=== PATIENT | female | born 1930 | race Caucasian/White ===

== ENCOUNTER 2016-03-27 11:46 | Emergency (ER) | payer OTHER ==
[~2016-03-27] VITALS: Ht 170.2 cm; Wt 74.8 kg
[~2016-03-27 11:46] MED LIST: ALBU0.086 INH; ALBU1AER INH; GUAI100S6 PO; LEVA750T PO; MEDR4PAK3 PO; METH2.5 PO; MEVA40TA6 PO; NEBUMIS6 INH; ZITH250T PO
[2016-03-27 11:56] VITALS: BP 129/69; PULSE 76; RESP 16; TEMP 97.7; O2SAT 98
[2016-03-27] MEDS ORDERED: LOVA40TA PO (12:19)
[2016-03-27] MEDS ORDERED: METH2.5T PO (12:19)
[2016-03-27] MEDS ORDERED: FOLI1TAB4 PO ×2 (12:19)
[2016-03-27] MEDS ORDERED: VITA10003 PO (12:19)
--- NOTE | 2016-03-27 12:37 | PD ---
HPI Chief Complaint: Pain: Acute or Chronic Time Seen by Provider: 12:07 Travel History International Travel<30 days: No Contact w/Intl Traveler<30days: No Traveled to known affect area: No History of Present Illness HPI 75 year-old woman who presents to the emergency department complaining of left portion of the pain is been ongoing for the past 2 weeks. Described as being fairly constant, but worse at times, some as well walking, sometimes all resting. She states the pain gets severe at times. She thinks she may have had a little bit of swelling about the ankle. She describes the pain is more about the lateral ankle rating up into the anterior lateral cho. No trauma. She has rheumatoid arthritis but states that she hasn't had similar symptoms in the past. She is on methotrexate. No history of DVT or PE. No other complaints. History Past Medical History Narrative Medical Hyperlipidemia Rheumatoid arthritis, on methotrexate Influenza Vaccination: Yes Menopausal: Yes Social History Alcohol Use: No Tobacco Use: No Allergies-Medications (Allergen,Severity, Reaction): Coded Allergies: No Known Allergies (Verified , 03/27/16) Reported Meds & Prescriptions Reported Meds & Active Scripts Active Reported Vitamin D-3 (Cholecalciferol) 1,000 Unit Tab 1,000 Units PO DAILY Lovastatin 40 Mg Tab 80 Mg PO DAILY Folate (Folic Acid) 1 Mg Tab 1 Mg PO EVERY DAY BUT FRI Folate (Folic Acid) 1 Mg Tab 1 Mg PO DAILY Methotrexate 2.5 Mg Tab 6 Tab PO Q7D Review of Systems Except as stated in HPI: all other systems reviewed are Neg Physical Exam Narrative GENERAL: Well-appearing 85 year-old woman, appears uncomfortable, nontoxic. SKIN: Warm and dry. HEAD: Atraumatic. Normocephalic. CARDIOVASCULAR: Regular rate and rhythm. No murmur appreciated. RESPIRATORY: No accessory muscle use. Clear to auscultation. Breath sounds equal bilaterally. GASTROINTESTINAL: Abdomen soft, non-tender, nondistended. Hepatic and splenic margins not palpable. MUSCULOSKELETAL: No obvious deformities. It a little bit of swelling in the left leg. It is difficult to see. The legs are little bit obese. Minimal calf tenderness. She is a lot of tenderness over the anterior lateral left leg. Compartments seem soft. There is no increased pain with passive range of motion of the leg. Strength seems full and equal. No numbness tingling. NEUROLOGICAL: Awake and alert. No obvious cranial nerve deficits. Motor grossly within normal limits. Normal speech. Data Data Last Documented VS Vital Signs Date Time Temp Pulse Resp B/P Pulse Ox O2 Delivery O2 Flow Rate FiO2 03/27/16 12:55 63 16 136/65 96 Room Air 03/27/16 11:56 97.7 Orders Complete Blood Count With Diff (03/27/16 12:15) Comprehensive Metabolic Panel (03/27/16 12:15) Act Partial Throm Time (Ptt) (03/27/16 12:15) Prothrombin Time / Inr (Pt) (03/27/16 12:15) Tibia/Fibula (Ap/Lat) (03/27/16 ) Ankle, Complete (Put6gfy) (03/27/16 ) Us Leg Venous Doppler (03/27/16 ) Morphine Inj (Morphine Inj) (03/27/16 12:45) Creatine Kinase (Cpk) (03/27/16 12:37) Ibuprofen (Motrin) (03/27/16 13:15) Labs Laboratory Tests Test 03/27/16 12:40 White Blood Count 5.6 TH/MM3 Red Blood Count 4.51 MIL/MM3 Hemoglobin 12.9 GM/DL Hematocrit 38.3 % Mean Corpuscular Volume 84.9 FL Mean Corpuscular Hemoglobin 28.5 PG Mean Corpuscular Hemoglobin 33.6 % Concent Red Cell Distribution Width 12.8 % Platelet Count 209 TH/MM3 Mean Platelet Volume 8.4 FL Neutrophils (%) (Auto) 60.8 % Lymphocytes (%) (Auto) 31.2 % Monocytes (%) (Auto) 6.3 % Eosinophils (%) (Auto) 0.5 % Basophils (%) (Auto) 1.2 % Neutrophils # (Auto) 3.4 TH/MM3 Lymphocytes # (Auto) 1.7 TH/MM3 Monocytes # (Auto) 0.4 TH/MM3 Eosinophils # (Auto) 0.0 TH/MM3 Basophils # (Auto) 0.1 TH/MM3 CBC Comment DIFF FINAL Differential Comment Prothrombin Time 10.7 SEC Prothromb Time International 1.0 RATIO Ratio Activated Partial 25.4 SEC Thromboplast Time Sodium Level 141 MEQ/L Potassium Level 3.8 MEQ/L Chloride Level 107 MEQ/L Carbon Dioxide Level 24.1 MEQ/L Anion Gap 10 MEQ/L Blood Urea Nitrogen 11 MG/DL Creatinine 0.74 MG/DL Estimat Glomerular Filtration 75 ML/MIN Rate Random Glucose 97 MG/DL Calcium Level 9.2 MG/DL Total Bilirubin 0.5 MG/DL Aspartate Amino Transf 11 U/L (AST/SGOT) Alanine Aminotransferase 20 U/L (ALT/SGPT) Alkaline Phosphatase 70 U/L Total Creatine Kinase 84 U/L Total Protein 7.1 GM/DL Albumin 3.5 GM/DL MDM Medical Decision Making Medical Screen Exam Complete: Yes Emergency Medical Condition: Yes Interpretation(s) LABS: CBC is unremarkable. CMP is unremarkable. Total CK is normal Coags are unremarkable Tib-fib x-ray, ankle x-ray: Negative My review of left leg ultrasound: Negative Differential Diagnosis DVT, pathologic fracture, ruptured Denise cyst, arterial insufficiency, compartment syndrome, other Narrative Course Medical decision making INITIAL: 85-year-old woman who presents emergency department with pain in her leg below the knee to about the ankle. Some swelling. Suspect DVT. No trauma. Pain is significant. We'll check labs, ultrasound, x-ray, reassess. FINAL: The not sure why the patient's having pain in her cho. She describes moderately severe pain to me but was declining any pain medicine rating it 1-2 out of 10. I don't think she has something dangerous like compartment syndrome working. Workup here was negative. This point we will recommend NSAIDs, and follow-up with her primary physician if symptoms aren't improving. She agrees to return immediately for any numbness feeling or weakness. Diagnosis Primary Impression: Leg pain, left Additional Instructions: Take Aleve as needed for pain. Follow-up with her primary doctor if not completely well in the next 5-7 days. Return to the emergency department for any numbness tingling weakness, or any worsening pain. Med/Other Pt SpecificInfo: No Change to Meds Disposition: 01 DISCHARGE HOME Condition: Stable Jose Nathan MD Mar 27, 2016 12:37
[2016-03-27] MEDS ORDERED: MORPHINE SULFATE 4 MG/ML INJ IV PUSH ONE (12:45)
--- NOTE | 2016-03-27 12:47 | RADHPO ---
EXAM DATE/TIME: 03/27/2016 12:26 [facility] COMPARISON: No previous studies available for comparison. INDICATIONS : Left ankle pain with no known injury MEDICAL HISTORY : None. SURGICAL HISTORY : None. ENCOUNTER: Initial ACUITY: 3 weeks PAIN SCORE: 2/10 LOCATION: Left entire ankle and foot FINDINGS: There is no evidence of fracture, dislocation or bony destruction. No significant articular abnormali ties are identified. A tiny plantar heel spur is evident. Hindfoot is otherwise focally unremarkable. CONCLUSION: No acute bony findings. Luis Oneal MD on March 27, 2016 at 12:44 Board Certified Radiologist. This report was verified electronically.
--- NOTE | 2016-03-27 12:47 | RADHPO ---
EXAM DATE/TIME: 03/27/2016 12:28 [facility] COMPARISON: No previous studies available for comparison. INDICATIONS : Left lower leg pain with no known injury MEDICAL HISTORY : None. SURGICAL HISTORY : None. ENCOUNTER: Initial ACUITY: 3 weeks PAIN SCORE: 2/10 LOCATION: Left entire lower leg FINDINGS: Two view examination of the left tibia demonstrates no evidence of fracture or dislocation. Bony min eralization is normal. The soft tissue structures are intact. CONCLUSION: Unremarkable examination of the left tibia. Luis Oneal MD on March 27, 2016 at 12:45 Board Certified Radiologist. This report was verified electronically.
[2016-03-27 12:55] VITALS: BP 136/65; PULSE 63; RESP 16; O2SAT 96
[2016-03-27 13:03] LABS: CHLORIDE 107 MEQ/L (98-107); POTASSIUM 3.8 MEQ/L (3.5-5.1); SODIUM (NA) 141 MEQ/L (136-145)
[2016-03-27 13:04] LABS: AUTOMATED NEUTROPHIL # 3.4 TH/MM3 (1.8-7.7); BASOPHIL # 0.1 TH/MM3 (0-0.2); BASOPHIL % 1.2 % (0.0-2.0); EOSINOPHIL % 0.5 % (0.0-4.0); HEMATOCRIT 38.3 % (35.0-46.0); HEMO FLAGS DIFF FINAL; LYMPH % 31.2 % (9.0-44.0); LYMPHOCYTE # 1.7 TH/MM3 (1.0-4.8); MEAN CELL VOLUME 84.9 FL (80.0-100.0); MEAN CORPUSCULAR HEMOGLOBIN 28.5 PG (27.0-34.0); MEAN CORPUSCULAR HGB CONC 33.6 % (32.0-36.0); MONO % 6.3 % (0.0-8.0); NEUT % 60.8 % (16.0-70.0); PLATELET COUNT 209 TH/MM3 (150-450); RED BLOOD COUNT 4.51 MIL/MM3 (4.00-5.30); RED CELL DISTRIBUTION WIDTH 12.8 % (11.6-17.2); WHITE BLOOD COUNT 5.6 TH/MM3 (4.0-11.0)
[2016-03-27 13:07] LABS: ANION GAP 10 MEQ/L (5-15); APTT (PATIENT) 25.4 SEC (24.3-30.1); BICARBONATE 24.1 MEQ/L (21.0-32.0); BLOOD UREA NITROGEN 11 MG/DL (7-18); PROTHROMBIN TIME - PATIENT 10.7 SEC (9.8-11.6)
[2016-03-27 13:10] LABS: ALT (GPT) 20 U/L (10-53); AST (GOT) 11 U/L (15-37); GLOMERULAR FILTRATION RATE 75 ML/MIN (>89)
[2016-03-27 13:12] LABS: TOTAL BILIRUBIN ADULT 0.5 MG/DL (0.2-1.0)
[2016-03-27 13:14] LABS: ALKALINE PHOSPHATASE 70 U/L (45-117)
[2016-03-27] MEDS ORDERED: IBUPROFEN 400 MG TAB PO ONE (13:15)
--- NOTE | 2016-03-27 13:49 | RADHPO ---
EXAM DATE/TIME: 03/27/2016 13:23 [facility] COMPARISON: No previous studies available for comparison. INDICATIONS : Pain. MEDICAL HISTORY : Hypercholesterolemia. Arthritis. Hernia, hiatal. SURGICAL HISTORY : Brow ptosis. Upper eyelid blepharoplasty. Colonscopy. ENCOUNTER: Initial ACUITY: 2 weeks PAIN SCORE: 5/10 LOCATION: Left leg. TECHNIQUE: Venous ultrasound of the leg was performed from the inguinal ligament to the proximal calf. Real-bambi e, color Doppler and spectral tracing, compression and augmentation techniques were used. FINDINGS: There is normal compressibility of the deep venous system from the inguinal region to the proximal ca lf. No echogenic clot is seen in the lumen of the common femoral, femoral, popliteal, and posterior tibial veins. There is a normal response of the venous system to proximal and distal augmentation an d respiration. CONCLUSION: Normal examination. Shekhar Martin MD on March 27, 2016 at 13:47 Board Certified Radiologist. This report was verified electronically.
== END 2016-03-27 14:11 | disposition home or self-care (01) ==
LOC: PHED 11:46
DX: M79.662 Pain in left lower leg (principal); M06.9 Rheumatoid arthritis, unspecified; E78.5 Hyperlipidemia, unspecified
CPT/HCPCS: 73590; 73610; 80053; 82550; 85025; 85610; 85730; 93971